=== PATIENT | male | born 1990 | race Hispanic/Latino ===

== ENCOUNTER 2017-08-01 10:32 | Day surgery (SDC) | payer OTHER ==
--- NOTE | 2017-07-30 14:30 | HP ---
HISTORY OF PRESENT ILLNESS: Mr. 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 He had what was thought to be a cyst of his right buttocks. This was excised in the office and appreciated to extend deeply an d be consistent with a pilonidal cyst. He did not have any presacral cleft or sinuses. He returns today reporting that after excision of the cyst a few days ago, he has had drainage and he has not b een able to return to work. Plan is to perform a definitive resection with Z-plasty closure. He is instructed on normal saline wet to dry dressings daily. He has antibiotics to complete. He unders tands the risks of infection, bleeding, reoperation, risk of wound healing problems and consents. Q uestions answered. PAST MEDICAL HISTORY: None. PAST SURGICAL HISTORY: Noncontributory. MEDICATIONS: None. TOBACCO: None. ALCOHOL: None. REVIEW OF SYSTEMS: Ten-point noncontributory. PHYSICAL EXAMINATION: VITAL SIGNS: Weight 208 pounds, height 66 inches, blood pressure 144/83, pulse 68 and temperature 9 8.6 degrees. HEENT: Unremarkable. LUNGS: Clear to auscultation. CARDIAC: Regular rate and rhythm without murmur or gallop. ABDOMEN: Soft and nontender. No masses. Presacral area throughout midline upper buttocks is an op ening. There is no infection, but extends about 4 cm deep. ASSESSMENT AND PLAN: Pilonidal cyst. We will plan excision with Z-plasty closure. He understands the risks and benefits and consents.
[2017-07-31 11:28] VITALS: BMI 33.5
[2017-08-01] MEDS ORDERED: metroNIDAZOLE 500 MG/100 ML BAG ONE (10:49)
[2017-08-01] MEDS ORDERED: Levofloxacin 500 mg/D5W 100 ml Premix Bag ONE (10:49)
[2017-08-01] MEDS ORDERED: Ketorolac Tromethamine 30 MG/ML VIAL ONE ×2 (10:49→12:40)
[2017-08-01] MEDS ORDERED: Midazolam HCl 2 mg/2 ml Vial ONE (10:52)
[2017-08-01] MEDS ORDERED: Fentanyl 100 MCG/2 ML VIAL ONE ×2 (10:52→14:43)
[2017-08-01] MEDS ORDERED: Bupivacaine PF 0.5% 30 ML VIAL ONE (11:19)
[2017-08-01] MEDS ORDERED: Lidocaine 1% w/Epinephrine 1:200K 30 ML VIAL ONE (11:19)
[2017-08-01 11:34] LABS: #Basophils 0.1 thou/uL (0.0-0.2); #Eosinphils 0.1 thou/uL (0.0-0.7); #Lymphocytes 2.3 thou/uL (1.20-3.40); #Monocytes 0.4 thou/uL (0.11-0.59); #Neutrophils 2.9 thou/uL (1.40-6.50); %Basophils 1.4 % (0.0-1.0); %Eosinophils 1.3 % (0.0-10.0); %Lymphocytes 40.5 % (21.0-51.0); %Monocytes 6.1 % (0.0-10.0); Hematocrit 55.1 % (42.0-52.0); Red Blood Cell (RBC) Count 5.96 mill/uL (4.70-6.10); White Blood Cell (WBC) Count 5.8 thou/uL (4.8-10.8)
[2017-08-01 12:03] LABS: Anion Gap 11 mmol/L (10-20); BUN (Urea Nitrogen) 13 mg/dL (8.9-20.6); Calc. Creatinine Clearance 155 mL/min (70-130); Calcium 10.3 mg/dL (7.8-10.44); Carbon Dioxide 28 mmol/L (22-29); Chloride 103 mmol/L (98-107); Estimated GFR-MDRD Greater than 90
[2017-08-01] MEDS ORDERED: Dexamethasone 20 MG/5 ML VIAL ONE (12:40)
[2017-08-01] MEDS ORDERED: Lidocaine 2% PF 10 ML AMP (For Epidural Use) ONE (12:40)
[2017-08-01] MEDS ORDERED: Glycopyrrolate 0.2 MG/ML 5 ML SYRINGE ONE (12:40)
[2017-08-01] MEDS ORDERED: Ondansetron HCl/PF 4 MG/2 ML Vial ONE (12:40)
[2017-08-01] MEDS ORDERED: Propofol 200 MG/20 ML VIAL ONE ×2 (12:40)
--- NOTE | 2017-08-01 17:31 | OP ---
DATE OF PROCEDURE: 08/01/2017 PREOPERATIVE DIAGNOSIS: Pilonidal cyst. POSTOPERATIVE DIAGNOSIS: Pilonidal cyst. PROCEDURE PERFORMED: Excision of pilonidal cyst with Z-plasty closure, #19-[place]ic round LETICIA Gold darnell in. SURGEON: Dr. Justin Campbell. ANESTHESIA: General. Local 0.5% Marcaine without epinephrine, 30 mL, mixed with 1% Xylocaine with epinephrine, 30 mL, total volume mixture used. ESTIMATED BLOOD LOSS: Less than 40 mL. BLOOD TRANSFUSED: None. PROCEDURE IN DETAIL: The patient was taken to the operating room where under general anesthesia in the prone position, properly padded and presacral area prepared with chloraprep, draped in routine f ashion. Buttocks had been taped apart for exposure. Elliptical incision was made, excising the pil onidal cyst disease what extended with a sinus tract to the right of the midline excising that down through skin and subcutaneous tissue down to the presacral subcutaneous tissue. The fascia was not exposed. Once this was excised and submitted to pathology, wound irrigated, hemostasis gained with cautery, incision was made for a Z-plasty closure. Once these flaps had been created bilaterally, o bliquely, hemostasis gained with the cautery and a #19 Gold LETICIA drain placed exiting the right superi or buttocks and secured with 3-0 nylon suture, Mastisol, Biopatch and Op-Site applied. The flaps we re then transposed and closed by approximating subcutaneous tissues with interrupted sutures of 2-0 Monocryl, skin with continuous subcuticular suture of 4-0 Monocryl and DermaGlue applied. Good clos ure obtained, flaps looked viable and healthy. Local anesthetic infiltrated into skin and subcutane ous tissue for postoperative pain control. The patient tolerated the procedure well.
== END 2017-08-01 16:20 | disposition home or self-care (01) ==
LOC: SDC 10:32
PROVIDERS: ATTEND Specialist
PROC: 0HX8XZZ Transfer Buttock Skin, External Approach (ICD-10-PCS; principal; 2017-08-01)
DX: L05.91 Pilonidal cyst without abscess (principal); Z79.2 Long term (current) use of antibiotics; Z79.891 Long term (current) use of opiate analgesic
CPT/HCPCS: 80048; 85025; 88304; J0131; J1100; J1885; J1956; J2001; J2250; J2405; J2704; J3010; Q9968; S0020